=== PATIENT | male | born 1955 | race Caucasian/White ===

== ENCOUNTER 2018-02-15 08:03 | Day surgery (SDC) | payer OTHER ==
[2018-02-14 10:30] VITALS: BMI 33.9
--- NOTE | 2018-02-15 07:56 | HP ---
DATE OF ADMISSION: 02/15/2018 HISTORY OF PRESENT ILLNESS: This 62-year-old male referred to me for a colonoscopy for colon cancer screening. The patient does have a history of seeing blood in his stools over the last 2 months. He was really constipated for several months. However, in the last 2 months, he is having some diarrhe a. The stools are watery. Stools are of small volume. He has multiple stools as much as 10 to 12 a day. No history of abdominal pain or rectal bleeding. The patient comes in for a colonoscopy becau se of the above reasons. ALLERGIES: None. SOCIAL HISTORY: The patient is a former smoker. He was also drinking alcohol heavily. He quit smok ing and drinking alcohol, 3 years ago. PAST MEDICAL HISTORY: 1. Hypertension 2. Atrial fibrillation. PHYSICAL EXAMINATION: VITAL SIGNS: Pulse is 70, blood pressure 130/80. HEENT: Conjunctivae clear. CARDIOVASCULAR: First and second heart sounds normal. LUNGS: Clear to auscultation. ABDOMEN: Soft, no organomegaly. No tenderness. No masses. ADMITTING DIAGNOSIS: A 62-year-old male with history of change in bowel habits, diarrhea over the la st 2 months. The patient underwent colonoscopy.
[2018-02-15] MEDS ORDERED: Propofol 200 MG/20 ML VIAL ONE (13:27)
[2018-02-15] MEDS ORDERED: Lidocaine 1% PF 5 ML VIAL ONE (13:27)
[2018-02-15 13:35] LABS: Estimated GFR-MDRD - POC Greater than 90
[2018-02-15] MEDS ORDERED: Iopamidol 370 76% 100 ML VIAL ONE (14:58)
--- NOTE | 2018-02-15 17:27 | CT ---
CT ABDOMEN AND PELVIS WITH IV CONTRAST: 02/15/18 HISTORY: Postoperative post colonoscopy. Patient has not had normal bowel movement in four months. COMPARISON: None available. FINDINGS: There is mild bibasilar atelectasis. There is a small approximately 4 mm pulmonary nodule at the righ t lung base. The liver has a normal CT appearance and no hepatic lesions are seen. The spleen, pancreas, bilateral adrenal glands, left kidney, and urinary bladder demonstrate a normal CT appearance. There is a subcentimeter too small to characterize hypodense lesion in the mid portion right kidney. Vascular calcifications in the abdominal aorta and involving the iliac arteries. The prostate gland is enlarged measuring 5.8 cm in transverse dimensions with lobulated appearance an d mass effect in the posterior inferior aspect of the urinary bladder. There is prominent wall thickening involving the distal sigmoid colon and extending into the rectum. While there are multiple colonic diverticula seen in this region, findings are worrisome for a neopla stic process. Just to the left of the distal descending colon, there is a soft tissue mass in a peric olonic location measuring 3.6 cm x 2.9 cm which is contiguous with the area of thickening and could b e related to extra colonic extension of tumor. There are multiple prominent adjacent lymph nodes in a pericolonic location as well in the region of thickening with associated pericolonic inflammatory ch anges noted as well. There are enlarged para-aortic lymph nodes present with largest conglomeration o f lymph nodes seen on the left just below the level of the renal vessels measuring 5.1 cm x 2.5 cm. H owever, there are also additional prominent lymph nodes present, one of which is just to the left of the left common iliac artery which measures 3.4 cm x 1.8 cm. No free intraperitoneal gas is visualized. The appendix is normal in caliber. There are small fat containing bilateral inguinal hernias, greater on the left. Degenerative changes are seen in the spine. 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 There is a circumscribed fat density mass within the left abdominis oblique mu sculature anteriorly measuring 7.9 cm x 3.2 cm likely related to an intramuscular lipoma. IMPRESSION: 1. Short segment area of significant circumferential thickening involving the sigmoid colon with intraluminal narrowing and adjacent pericolonic inflammatory changes. While there are colonic divert icula seen in this region, the findings are worrisome for a neoplastic process. In addition, there is a mass just to the left of the distal sigmoid colon at the sigmoid rectal junction which may be rela marely to extra colonic extension of neoplastic process. 2. Pericolonic inflammatory changes adjacent to the area of bowel wall thickening. 3. Periaortic and pelvic lymphadenopathy. 4. No hepatic lesions are seen. 5. Enlargement of the prostate gland. 6. Above findings were discussed with Dr. Katelyn Lane on 02/15/18 at 1348 hours. POS: [facility]
--- NOTE | 2018-02-16 11:45 | OP ---
DATE OF SURGERY: 02/15/2018 OPERATIVE PROCEDURE: Flexible biopsy. PREOPERATIVE DIAGNOSIS: A 62-year-old male with changing bowel habits, undergoing colonosc opy for colon cancer screening. POSTOPERATIVE DIAGNOSES: Large polypoid lesion at 20 cm from with luminal narrowing. The scop e could not be advanced past the stricture, several attempts. PROCEDURE IN DETAIL: The patient was placed on his left lateral position and was given sedation by A nesthesia Department. A rectal exam was done and the scope was advanced into the rectum. No lesion felt on rectal exam. A Pentax video colonoscope was introduced into the rectum and advanced into the lower sigmoid colon area. At 20-25 cm anal margin, the patient was found to have circumferential jostin men narrowing. The lumen was very tight. There was also a polypoid lesion. The scope could not be advanced past the strictured area. Biopsy obtained from the area. DISCHARGE PLANNING: This is a 62-year-old male who came in for colonoscopy. On colonoscop y was found to have sigmoid stricture with what appears to be polypoid lesion. DISCHARGE RECOMMENDATIONS: 1. Obtain abdominal CAT scan. 2. Refer to Surgery for possible sigmoid resection.
== END 2018-02-15 14:00 | disposition home or self-care (01) ==
LOC: SDC 08:03
PROVIDERS: ATTEND Internal Medicine Gastroenterology
PROC: 0DBN8ZX Excision of Sigmoid Colon, Via Natural or Artificial Opening Endoscopic, Diagnostic (ICD-10-PCS; principal; 2018-02-15)
DX: C18.7 Malignant neoplasm of sigmoid colon (principal); K56.609 Unspecified intestinal obstruction, unspecified as to partial versus complete obstruction; I10 Essential (primary) hypertension; I48.91 Unspecified atrial fibrillation; Z87.891 Personal history of nicotine dependence; Z79.82 Long term (current) use of aspirin; Z79.899 Other long term (current) drug therapy
CPT/HCPCS: 74177; 82378; 82565; 88305; J2001; J2704

== ENCOUNTER 2018-02-28 08:50 | Inpatient (IN) | payer OTHER ==
[2018-02-28 09:26] VITALS: BMI 33.6
[2018-02-28] MEDS ORDERED: hydrALAZINE 20 MG/ML VIAL SLOW IVP PRN (09:28)
[2018-02-28] MEDS ORDERED: Ondansetron HCl/PF 4 MG/2 ML Vial SLOW IVP PRN (09:33)
[2018-02-28] MEDS ORDERED: Ondansetron ODT 4 MG TAB PO PRN (09:33)
[2018-02-28] MEDS ORDERED: GoLYTELY 4,000 ml Bottle PO SCH (09:45)
[2018-02-28 09:49] LABS: #Eosinphils 0.5 thou/uL (0.0-0.7); #Lymphocytes 1.3 thou/uL (1.20-3.40); #Monocytes 0.9 thou/uL (0.11-0.59); #Neutrophils 5.8 thou/uL (1.40-6.50); %Basophils 0.2 % (0.0-1.0); %Eosinophils 5.4 % (0.0-10.0); %Lymphocytes 14.9 % (21.0-51.0); %Monocytes 10.9 % (0.0-10.0); %Neutrophils 68.5 % (42.0-75.0); Hemoglobin 14.1 g/dL (14.0-18.0); Mean Corpuscular HGB CONC 32.7 g/dL (32.0-36.0); Mean Corpuscular Volume 88.8 fl (80.0-94.0); Mean Platelet Volume 6.9 fL (7.4-10.4); Platelet Count 389 thou/uL (130-400); RBC Distribution Width 12.9 % (11.5-14.5); Red Blood Cell (RBC) Count 4.87 mill/uL (4.70-6.10); White Blood Cell (WBC) Count 8.4 thou/uL (4.8-10.8)
[2018-02-28 10:11] LABS: ALT (SGPT) 16 U/L (8-55); AST (SGOT) 18 U/L (5-34); Albumin 4.2 g/dL (3.4-4.8); Alkaline Phosphatase 86 U/L (40-150); Anion Gap 14 mmol/L (10-20); BUN (Urea Nitrogen) 13 mg/dL (8.4-25.7); Bilirubin, Total 0.8 mg/dL (0.2-1.2); Calc. Creatinine Clearance 165 mL/min (70-130); Calcium 9.4 mg/dL (7.8-10.44); Carbon Dioxide 21 mmol/L (23-31); Chloride 106 mmol/L (98-107); Estimated GFR-MDRD Greater than 90; Globulin 3.6 g/dL (2.4-3.5); Glucose 102 mg/dL (80-115); Potassium 3.9 mmol/L (3.5-5.1); Protein, Total 7.8 g/dL (5.8-8.1); Sodium 137 mmol/L (136-145)
[2018-02-28] MEDS: Sodium Chloride 0.9% 1,000 ML IV SCH ×2 (10:56→21:40)
[2018-02-28] MEDS: Famotidine 20 MG TAB PO SCH ×2 (10:59→21:40)
--- NOTE | 2018-02-28 12:16 | RAD ---
CHEST TWO VIEWS: 02/28/2018 PROVIDED CLINICAL HISTORY: Preop. COMPARISON: None. FINDINGS: The cardiac silhouette appears enlarged. Mild elevation of the right hemidiaphragm. No focal consol idation, pleural fluid, or pneumothorax apparent. IMPRESSION: Cardiomegaly without evidence for an acute cardiopulmonary process. POS: [facility]
--- NOTE | 2018-02-28 14:21 | CON ---
DATE OF CONSULTATION: 02/28/2018 REASON FOR CONSULTATION: Preop clearance and history of atrial fibrillation. PRIMARY CARE PROVIDER: Dr. Nikolay Lee. HISTORY OF PRESENT ILLNESS: Mr. Bear is a 62-year-old gentleman with previous history of atrial fib rillation who recently presented with a colon obstruction. He is scheduled for resection. From a CV standpoint, he states he was diagnosed with atrial fibrillation secondary to alcohol use wh ile in [place]. He underwent multiple studies including coronary angiography in addition to a cardi oversion. He was placed on anticoagulation therapy for 10-12 months, then stopped. He has had no re current episodes of atrial fibrillation. He states he stopped all alcohol and tobacco last year. No syncope, presyncope, dizziness or lightheadedness is present. PAST MEDICAL HISTORY: Hypertension, atrial fibrillation. ALLERGIES: None. SOCIAL HISTORY: As above. HOME MEDICATIONS: Include aspirin, and amlodipine. REVIEW OF SYSTEMS: Ten point review of systems reviewed and as above, otherwise negative. PHYSICAL EXAMINATION: VITAL SIGNS: Blood pressure 150/82, pulse 44, temperature 97.8. GENERAL: Patient is a pleasant male who is in no acute distress. The patient appears his stated age. NEUROLOGIC: The patient is alert and oriented times 3 with no focal neurologic deficits. HEENT: Sclerae without icterus. Mouth has moist mucous membranes with normal pallor. NECK: No JVD. Carotid upstroke brisk. No bruits bilaterally. LUNGS: Clear to auscultation with unlabored respirations. BACK: No scoliosis or kyphosis. CARDIAC: Regular rate and rhythm with normal S1 and S2. No S3 or S4 noted. No significant rubs, mur murs, thrills, or gallops noted throughout the precordium. PMI is not displaced. There is no parast ernal heave. ABDOMEN: Soft, nontender, nondistended. No peritoneal signs present. No hepatosplenomegaly. No abn ormal striae. EXTREMITIES: 2+ femoral and 2+ dorsalis pedis pulses. No cyanosis, clubbing, or edema. SKIN: No gross abnormalities. EKG normal sinus rhythm with a narrow QRS complex, sinus bradycardia present. IMPRESSION: 1. Preop clearance. 2. History of atrial fibrillation. 3. Bradycardia. RECOMMENDATIONS: Mr. Bear has no current symptoms from his bradycardia. His heart rate initially w as a 44, but has been in the 50s to 60s. We will try and obtain records from [place]. If he has un dergone coronary angiography and per his history had no significant blockage would then proceed with surgery. I have asked the nurse to obtain a release of information.
--- NOTE | 2018-02-28 17:02 | HP ---
CHIEF COMPLAINT: Colon obstruction. HISTORY OF PRESENT ILLNESS: This is a 62-year-old male who presents with a history of chronic diarrh ea and abdominal bloating. He has lower abdominal cramping and pain that has become more increased l ately. He recently had a colonoscopy by Dr. Lane, which revealed near obstructing stricture in his left colon. Dr. Lane was not able to get the colonoscope past this area. He did do some bi opsies, those biopsies have revealed poorly differentiated adenocarcinoma. The patient had a CT scan which showed evidence of apple core lesion in this area with surrounding lymphadenopathy. There is no evidence of diffuse lymphadenopathy or metastatic disease. The patient's CEA level is normal. He notes bloating, multiple liquid stools a day, and lower abdominal cramping and pain. No fevers, no chills. No significant blood in stools. PAST MEDICAL HISTORY: Hypertension. PAST SURGICAL HISTORY: None. MEDICINES TAKEN DAILY: Amlodipine and aspirin. SOCIAL HISTORY: No smoking. He has a history of alcohol. No other drugs. REVIEW OF SYSTEMS: Ten system review of systems otherwise negative what was described above. ALLERGIES: No known drug allergies. PHYSICAL EXAMINATION: VITAL SIGNS: Blood pressure is 159/82, pulse 44, respirations 14. He is afebrile. HEENT: Sclerae are anicteric. Oropharynx clear. NECK: No lymphadenopathy. CHEST: Clear. HEART: Regular rate and rhythm. ABDOMEN: Soft, it is protuberant, it is mildly distended. Lower abdominal mild pain on exam. No gu arding or rebound. No abdominal or inguinal hernias. EXTREMITIES: No ischemia or edema to extremities. LABORATORY AND X-RAY FINDINGS: White blood cell count is 8, hemoglobin 14, platelet count is 389. S odium is 137, potassium 3.9, creatinine is 0.74. Liver function tests normal. CEA is 2.21. CT scan from prior admission reveals evidence of lymphadenopathy and left-sided colon mass. ASSESSMENT: 1. Colon mass with near obstruction. Biopsy shows invasive adenocarcinoma, clinical stage is T3 N1 M0. 2. History of hypertension and paroxysmal atrial fibrillation, on amlodipine, but no other medicines . PLAN: Admit to the hospital for slow prep. He is not going to be able to tolerate the prep in one s itting as an outpatient. We will have the business applications manager see him to be sure he does not need to be res tressed.
--- NOTE | 2018-03-01 08:32 | PRG ---
DATE OF SERVICE: 03/01/2018 SUBJECTIVE: Mr. Bear is doing very well. No current complaints. No chest pain, pressure, dizzines s, lightheadedness, syncope, presyncope. I did review his vital signs. It appears he has been in th e 40s all evening and this morning. Upon my arrival to his room, he was standing up and walking arou nd. I checked his pulse and his pulse was in the upper 60s-70s. PHYSICAL EXAMINATION: VITAL SIGNS: Blood pressure 140/70, 95, pulse 66, temperature afebrile. LUNGS: Clear to auscultation. HEART: Regular rate and rhythm. ABDOMEN: Soft, nontender, and nondistended. EXTREMITIES: No edema. IMPRESSION: 1. Bradycardia. 2. Preop clearance. RECOMMENDATIONS: His bradycardia seems to resolve with movement. Would recommend telemetry monitori ng overnight to assess his rhythm with exertion. I am awaiting his angiogram performed 3 years ago. If felt to be within normal limits as per his history, would be okay from my standpoint to clear for surgery.
[2018-03-01] MEDS ORDERED: Amlodipine 10 MG TAB PO SCH (09:00)
[2018-03-01] MEDS: Amlodipine 10 MG TAB PO SCH (09:12)
[2018-03-01] MEDS: metroNIDAZOLE 500 MG TAB PO SCH ×3 (09:15→19:49)
[2018-03-01] MEDS: Famotidine 20 MG TAB PO SCH ×2 (09:15→19:49)
--- NOTE | 2018-03-01 09:58 | PDOC.GSPN ---
Surgery Progress Note: Subj - Subjective Narrative: Tolerated prep yesterday without difficulty. Dr. Chaparro recommends monitored bed today due to bradycardia. Surgery Progress Note: Obj - Vital signs Vital signs: Vital Signs - Most Recent Temp Pulse Resp BP Pulse Ox 97.6 F 66 16 148/95 H 96 03/01/18 08:00 03/01/18 09:12 03/01/18 08:00 03/01/18 09:12 03/01/18 08:00 - Physical Exam General: no distress Cardiovascular: regular rate and rhythm Respiratory: clear to auscultation Abdomen: soft, non tender, nondistended Surgery Progress Note: Results - Labs Result Diagrams: 02/28/18 09:34 02/28/18 09:34 Surgery Progress Note: A/P - Problem (1) Cancer of sigmoid colon Current Visit: Yes Code(s): C18.7 - MALIGNANT NEOPLASM OF SIGMOID COLON Status: Acute Assessment and Plan: Partially obstructed. Finish prep today. Surgery tomorrow unless there are cardiac issues overnight.
[2018-03-01] MEDS: Sodium Chloride 0.9% 1,000 ML IV SCH ×2 (10:27→23:45)
[2018-03-01] MEDS: Neomycin 500 mg Tablet PO SCH ×3 (17:20→20:50)
[2018-03-02] MEDS ORDERED: cefOXitin 2 GM, Syringe 1 ML in Sterile Water 10 ML SLOW IVP SCH (00:15)
[2018-03-02] MEDS: metroNIDAZOLE 500 MG TAB PO SCH (09:00)
[2018-03-02] MEDS: Famotidine 20 MG TAB PO SCH ×2 (09:00→20:37)
[2018-03-02] MEDS ORDERED: Dexamethasone 4 mg/ml Vial ONE (10:08)
[2018-03-02] MEDS ORDERED: Midazolam HCl 2 mg/2 ml Vial ONE (10:08)
[2018-03-02] MEDS ORDERED: Fentanyl 100 MCG/2 ML VIAL ONE ×3 (10:08→13:42)
[2018-03-02] MEDS ORDERED: Bupivacaine/Epinephrine 0.25% 30 ML VIAL ONE (10:21)
[2018-03-02] MEDS ORDERED: Fentanyl 250 MCG/5 ML VIAL ONE (10:28)
[2018-03-02] MEDS ORDERED: Famotidine/PF 20 mg/2ml Vial ONE (10:28)
[2018-03-02] MEDS ORDERED: Ondansetron HCl/PF 4 MG/2 ML Vial ONE ×2 (10:28→16:54)
[2018-03-02] MEDS ORDERED: cefOXitin 2 GM VIAL ONE (12:38)
[2018-03-02] MEDS ORDERED: Promethazine HCl 25 MG/ML VIAL IM PRN ×3 (12:59→19:09)
[2018-03-02] MEDS ORDERED: Ondansetron HCl/PF 4 MG/2 ML Vial IVP PRN ×3 (12:59→19:09)
[2018-03-02] MEDS ORDERED: Promethazine HCl 25 MG/ML VIAL SLOW IVP PRN (12:59)
[2018-03-02] MEDS ORDERED: HYDROmorphone 2 MG/ML VIAL SLOW IVP PRN (12:59)
[2018-03-02] MEDS ORDERED: Meperidine HCl/PF 25 MG/ML VIAL SLOW IVP PRN (12:59)
[2018-03-02] MEDS ORDERED: Fentanyl 100 MCG/2 ML VIAL SLOW IVP PRN (14:21)
[2018-03-02] MEDS ORDERED: hydrALAZINE 20 MG/ML VIAL SLOW IVP PRN (14:21)
[2018-03-02] MEDS ORDERED: CEFOXITIN IVPB SCH ×2 (14:30→22:00)
[2018-03-02] MEDS: D5 1/2 NS w/20 mEq KCL 1,000 ML IV SCH (15:56)
--- NOTE | 2018-03-02 16:04 | OP ---
DATE OF PROCEDURE: 03/02/2018 PREOPERATIVE DIAGNOSIS: Left colon adenocarcinoma, locally invasive. POSTOPERATIVE DIAGNOSES: Left colon adenocarcinoma, locally invasive. PROCEDURES: 1. Left colectomy with low pelvic anastomosis diverted with loop ileostomy. 2. Splenic flexure mobilization. SURGEON: Luis Enrique Lee M.D. ANESTHESIA: General. ESTIMATED BLOOD LOSS: 100 mL. COMPLICATIONS: None. FINDINGS: Locally invasive cancer in low sigmoid colon. INDICATIONS: The patient is a 62-year-old male who presented with chronic diarrhea and lower abdomin al cramping and pain. Colonoscopy by Dr. Lane revealed near obstructing mass and stricture. Bi opsies revealed invasive adenocarcinoma. CT scan showed evidence of local lymphadenopathy, but no me tastatic disease. Risks, benefits, and alternatives were discussed. He is admitted for cardiac norma kelvin and underwent colon prep, both mechanical and antibiotic. He had Hibiclens shower last night. He gave consent for surgery. He understood risks, benefits, alternatives to surgery. TECHNIQUE: The patient was taken to the operating room and placed supine on the table. After genera l anesthetic was obtained, a Gaines was placed. The patient was placed in lithotomy position. His ab domen were shaved, prepped, and draped in a sterile fashion. Midline incision is made from above umb ilicus all the way down to pubis. Cautery dissected down into the abdominal cavity. Bookwalter retr actor was placed. Left colon mobilized along the white line of Toldt. Left ureter was found and exc luded from the dissection. The colon was flipped over and the mesentery incised on the medial side. A medial to lateral dissection is performed. Left ureter again is found. Inferior mesenteric arter y was taken using Lianet clamp and silk tie. The mesentery was then taken down into the pelvis using LigaSure. In the upper rectum, the contour stapler was fired across the colon after the lateral and posterior attachments were taken using the LigaSure. The left colon was then mobilized up and the sp lenic flexure mobilized by the transverse colon and the greater omentum. All splenic flex ure attachments were taken down. This allowed for the upper left colon to pull down into the pelvis under no tension. A 31 EEA stapler was brought into the sterile field. A location in the left upper colon was found for the anastomosis. The anvil was passed through a distal colotomy with its pin br ought out on the antimesenteric surface of the colon proximal in the upper left colon. Just distal t o this, a reload of the contour stapler was fired across the colon. The anvil segment was able to be brought down into the pelvis under no tension. The specimen is opened on the back table to reveal w hat looked like satellite nodular tissue from the stricture and mass all the way to the end staple li ne. A stitch was placed on this in staple line. So the rectum was fully dissected all the way down and an additional 1-2 inches of the rectum was taken with silk placed on the new margin. The base fo r the EEA is brought up to the anus. Its sharp pin brought on the antimesenteric surface below, conn ected to the anvil from above and the stapler was tightened down to the green zone and fired. There were 2 good rings of tissue. The distal most ring is sent for final distal margin. Because of the l ocally inflammatory nature of the disease process as well as the low anastomosis, decision was made t o divert with ostomy. Ellipse of skin taken out in the right lower quadrant. Cruciate incision is m amanda in the fascia and a loop of the terminal ileum is brought up through here and held in place using a Maddie. All instrument counts, needle counts, and lap counts were correct. The abdomen is irrig ated. There is no ongoing bleeding. Again, the left ureter was and found to be without injury. Sep rafilm was placed around the ostomy site and posterior to the midline closure. The fascia was closed using running PDS from the top and the bottom and tied in the middle. Subcutaneous tissues are irri gated using 3 liters of Pulsavac tow operator and the skin is closed using 3-0 Vicryl, 4-0 Monocryl, and Dermabond. The ostomy was then matured in the usual fashion using 3-0 Vicryl and ostomy devices ethan daphne. The patient is en route to recovery in stable condition. All instrument counts, needle counts, lap counts are correct.
[2018-03-02] MEDS: Fentanyl 100 MCG/2 ML VIAL SLOW IVP PRN ×2 (16:49→18:39)
[2018-03-02] MEDS: Amlodipine 10 MG TAB PO SCH (16:51)
[2018-03-02] MEDS ORDERED: Glycopyrrolate 0.2 MG/ML 5 ML SYRINGE ONE (16:54)
[2018-03-02] MEDS ORDERED: PROPOFOL 200 MG/20 ML VIAL ONE (16:54)
[2018-03-02] MEDS ORDERED: Lidocaine 1% PF 5 ML VIAL ONE (16:54)
[2018-03-02] MEDS ORDERED: Dexamethasone 20 MG/5 ML VIAL ONE (16:54)
[2018-03-02] MEDS ORDERED: Ketorolac Tromethamine 30 MG/ML VIAL ONE (16:54)
[2018-03-02] MEDS ORDERED: ePHEDrine/0.9% NaCl/PF SYRINGE 50 mg/10 ml ONE (16:54)
[2018-03-02] MEDS: Acetaminophen 1,000 MG in Premix Bag 1 BAG IVPB SCH (17:46)
[2018-03-02] MEDS ORDERED: Zolpidem Tartrate 5 MG TAB PO PRN (19:09)
[2018-03-02] MEDS ORDERED: Naloxone HCl 0.4 mg/ml Vial IV PRN (19:09)
[2018-03-02] MEDS ORDERED: Fentanyl 5000 MCG/250 ML CADD IV PRN (19:09)
[2018-03-02] MEDS ORDERED: diphenhydrAMINE 50 MG/ML VIAL IM/IV PRN (19:09)
[2018-03-02] MEDS ORDERED: diphenhydrAMINE 25 MG CAP PO PRN (19:09)
[2018-03-02] MEDS ORDERED: fentaNYL Citrate/PF 2,000 MCG in Sodium Chloride 0.9% 60 ML IV PRN (20:30)
[2018-03-02] MEDS: Enoxaparin Sodium 40 MG/0.4 ML SYRINGE SC SCH (20:37)
[2018-03-02] MEDS: Famotidine 40 MG/4 ML VIAL SLOW IVP SCH (20:38)
[2018-03-03] MEDS: Acetaminophen 1,000 MG in Premix Bag 1 BAG IVPB SCH ×3 (01:15→12:44)
[2018-03-03] MEDS: D5 1/2 NS w/20 mEq KCL 1,000 ML IV SCH ×2 (01:15→08:33)
[2018-03-03 04:36] LABS: #Lymphocytes 0.7 thou/uL (1.20-3.40); #Monocytes 1.1 thou/uL (0.11-0.59); %Eosinophils 0.1 % (0.0-10.0); %Lymphocytes 4.3 % (21.0-51.0); %Monocytes 6.5 % (0.0-10.0); %Neutrophils 89.1 % (42.0-75.0); Hemoglobin 11.6 g/dL (14.0-18.0); Mean Corpuscular HGB CONC 32.3 g/dL (32.0-36.0); Mean Corpuscular Hemoglobin 28.3 pg (27.0-31.0); Mean Corpuscular Volume 87.6 fl (80.0-94.0); Mean Platelet Volume 6.9 fL (7.4-10.4); Platelet Count 377 thou/uL (130-400); RBC Distribution Width 12.9 % (11.5-14.5); Red Blood Cell (RBC) Count 4.11 mill/uL (4.70-6.10); White Blood Cell (WBC) Count 16.9 thou/uL (4.8-10.8)
[2018-03-03 04:46] LABS: Anion Gap 10 mmol/L (10-20); BUN (Urea Nitrogen) 14 mg/dL (8.4-25.7); Calc. Creatinine Clearance 127 mL/min (70-130); Carbon Dioxide 23 mmol/L (23-31); Chloride 106 mmol/L (98-107); Estimated GFR-MDRD 79; Glucose 191 mg/dL (80-115); Potassium 4.4 mmol/L (3.5-5.1); Sodium 135 mmol/L (136-145)
[2018-03-03] MEDS: Famotidine 20 MG TAB PO SCH ×2 (08:28→21:26)
[2018-03-03] MEDS: Amlodipine 10 MG TAB PO SCH (08:28)
[2018-03-03] MEDS: Famotidine 40 MG/4 ML VIAL SLOW IVP SCH ×2 (08:33→21:27)
[2018-03-03] MEDS ORDERED: Dextrose 50% Abboject 50 ML SYRINGE SLOW IVP PRN (10:05)
[2018-03-03] MEDS ORDERED: HumaLOG 300 UNITS/3 ML VIAL SC PRN (10:05)
[2018-03-03] MEDS ORDERED: Dextrose 5% in Water 1,000 ML IV PRN (10:05)
--- NOTE | 2018-03-03 10:10 | PDOC.GSPN ---
Surgery Progress Note: Subj - Subjective Narrative: Pain controlled with INDUSTRIAL RELATIONS COUNSELOR. Not out of bed yet. Surgery Progress Note: Obj - Vital signs Vital signs: Vital Signs - Most Recent Temp Pulse Resp BP Pulse Ox 97.7 F 62 19 112/69 92 L 03/03/18 08:00 03/03/18 08:28 03/03/18 08:00 03/03/18 08:28 03/03/18 08:00 - Physical Exam General: no distress Cardiovascular: regular rate and rhythm Respiratory: normal expansion Abdomen: soft, nondistended, appropriately tender Wound: healing well, ostomy/colostomy Surgery Progress Note: Results - Labs Result Diagrams: 03/03/18 03:16 03/03/18 03:16 Lab results: Laboratory Results - last 24 hr 03/03/18 03/03/18 03:16 03:16 WBC 16.9 H RBC 4.11 L Hgb 11.6 L Hct 36.0 L MCV 87.6 MCH 28.3 MCHC 32.3 RDW 12.9 Plt Count 377 MPV 6.9 L Neutrophils % 89.1 H Lymphocytes % 4.3 L Monocytes % 6.5 Eosinophils % 0.1 Basophils % 0.0 Neutrophils # 15.0 H Lymphocytes # 0.7 L Monocytes # 1.1 H Eosinophils # 0.0 Basophils # 0.0 Sodium 135 L Potassium 4.4 Chloride 106 Carbon Dioxide 23 Anion Gap 10 BUN 14 Creatinine 0.96 Estimated GFR (MDRD) 79 Glucose 191 H Calcium 9.0 Surgery Progress Note: A/P - Problem (1) Cancer of sigmoid colon Current Visit: Yes Code(s): C18.7 - MALIGNANT NEOPLASM OF SIGMOID COLON Status: Acute Assessment and Plan: POD 1 left colectomy and ileostomy. Bolus a liter NS. His urine is concentrated looking. Encouraged ambulation. Four times a day is the minimum. Full liquids for dinner if no nausea
[2018-03-03] MEDS: Sodium Chloride 0.9% 1,000 ML IV SCH ×2 (10:15→18:09)
[2018-03-03] MEDS ORDERED: Sodium Chloride 0.9% 1,000 ML IV SCH (10:15)
--- NOTE | 2018-03-03 13:18 | PDOC.CTH ---
Cardiology Progress Note - Subjective Patient with no cardiac complaints. Denies any CP, SOB, AMOR or palpitations. - Objective Vital Signs Temp Pulse Resp BP BP Pulse Ox 03/03/18 12:40 97.8 F 76 20 131/77 93 L 03/03/18 08:28 62 112/69 03/03/18 08:26 97.7 F 62 19 92 L 03/03/18 08:00 97.7 F 62 19 112/69 92 L 03/03/18 05:35 97.9 F 62 19 127/78 91 L Admit Weight 248 lb Weight 248 lb 03/02/18 03/03/18 03/04/18 06:59 06:59 06:59 Intake Total 900 2110 Output Total 600 900 Balance 300 1210 - Physical Examination General/Neuro: alert & oriented x3, NAD Neck: carotid US brisk, no JVD present Lungs: CTA Heart: PMI normal, RRR Abdomen: NT/ND Extremities: other: (no edema) - Telemetry Telemetry Rhythm: off tele - Labs Result Diagrams: 03/03/18 03:16 03/03/18 03:16 - Assessment/Plan 1. Colon cancer s/p left colectomy and ileostomy - managed by GS 2. Paroxsymal AFib - maintaining NSR. [id number] is 2 given history of HTN and CHF. Will address NOAC need prior to d/c. 3. HTN - well-controlled 4. Bradycardia - improved. Currently NSR 60s. No bblockers. 5. 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 EF 30-35% at that time. No repeat study recently. Avoid volume overload with IVFs. May need repeat ECHO (? outpatient).
[2018-03-03] MEDS: Enoxaparin Sodium 40 MG/0.4 ML SYRINGE SC SCH (21:26)
[2018-03-04] MEDS: Sodium Chloride 0.9% 1,000 ML IV SCH ×3 (03:44→19:15)
[2018-03-04 06:05] LABS: #Basophils 0.1 thou/uL (0.0-0.2); #Lymphocytes 1.1 thou/uL (1.20-3.40); #Monocytes 1.3 thou/uL (0.11-0.59); #Neutrophils 12.5 thou/uL (1.40-6.50); %Basophils 0.4 % (0.0-1.0); %Eosinophils 0.2 % (0.0-10.0); %Lymphocytes 7.6 % (21.0-51.0); %Monocytes 8.5 % (0.0-10.0); %Neutrophils 83.3 % (42.0-75.0); Hemoglobin 7.6 g/dL (14.0-18.0); Mean Corpuscular HGB CONC 32.2 g/dL (32.0-36.0); Mean Corpuscular Hemoglobin 28.4 pg (27.0-31.0); Mean Corpuscular Volume 88.3 fl (80.0-94.0); Platelet Count 333 thou/uL (130-400); RBC Distribution Width 12.9 % (11.5-14.5); Red Blood Cell (RBC) Count 2.66 mill/uL (4.70-6.10)
[2018-03-04 06:08] LABS: Anion Gap 9 mmol/L (10-20); BUN (Urea Nitrogen) 20 mg/dL (8.4-25.7); Calc. Creatinine Clearance 145 mL/min (70-130); Carbon Dioxide 23 mmol/L (23-31); Chloride 107 mmol/L (98-107); Estimated GFR-MDRD Greater than 90; Glucose 117 mg/dL (80-115); Potassium 3.9 mmol/L (3.5-5.1); Sodium 135 mmol/L (136-145)
[2018-03-04] MEDS: Famotidine 40 MG/4 ML VIAL SLOW IVP SCH (09:18)
[2018-03-04] MEDS: Amlodipine 10 MG TAB PO SCH (09:24)
[2018-03-04] MEDS: Famotidine 20 MG TAB PO SCH ×2 (09:24→21:32)
[2018-03-04] MEDS ORDERED: HYDROcodone/Acetaminophen 10/325 mg Tablet PO PRN (10:14)
[2018-03-04] MEDS ORDERED: Fentanyl 100 MCG/2 ML VIAL SLOW IVP PRN (10:15)
[2018-03-04] MEDS ORDERED: Ibuprofen 600 MG TAB PO PRN (18:38)
[2018-03-04] MEDS ORDERED: Acetaminophen 500 MG TAB PO PRN (18:38)
[2018-03-04] MEDS ORDERED: traMADol HCl 50 MG TAB PO PRN ×2 (18:38)
--- NOTE | 2018-03-04 19:03 | PRG ---
DATE OF SERVICE: 03/04/2018 SUBJECTIVE: Sunny Bear is doing well today. He is tolerating his liquids. His ileostomy is working well. OBJECTIVE: VITAL SIGNS: 97.9, 73, 16, 127/86. LUNGS: Clear to auscultation. CARDIAC: Regular rate and rhythm without murmur or gallop. ABDOMEN: Soft, ecchymosis about his wound expected postoperatively. He is tolerating his full liqui d diet. Ileostomy has good output. This morning his white count is 15, hemoglobin 7.6. Basic metabolic profile is normal. Overall, he is doing well. Overall, he is doing well. We will advance his diet to full. He continued on full liquids. We will saline lock him. AIRCRAFT ENGINE DISMANTLER has been discontinued.
[2018-03-04] MEDS: Enoxaparin Sodium 40 MG/0.4 ML SYRINGE SC SCH (21:31)
[2018-03-04] MEDS: HYDROcodone/Acetaminophen 10/325 mg Tablet PO PRN (21:32)
[2018-03-05] MEDS ORDERED: Fentanyl 100 MCG/2 ML VIAL SLOW IVP PRN (02:45)
[2018-03-05] MEDS: HYDROcodone/Acetaminophen 10/325 mg Tablet PO PRN ×3 (04:50→20:29)
--- NOTE | 2018-03-05 08:44 | EKG ---
Test Reason : PREOP Blood Pressure : / mmHG Vent. Rate : 044 BPM Atrial Rate : 044 BPM P-R Int : 192 ms QRS Dur : 126 ms QT Int : 486 ms P-R-T Axes : 024 -24 033 degrees QTc Int : 415 ms Marked sinus bradycardia Non-specific intra-ventricular conduction block Inferior infarct , age undetermined Abnormal ECG No previous ECGs available Confirmed by ROSALBA LYON MD ([id number]) on 03/05/2018 8:43:48 AM Referred By: GABBY Confirmed By:ROSALBA LYON MD
--- NOTE | 2018-03-05 08:45 | EKG ---
Test Reason : Blood Pressure : / mmHG Vent. Rate : 044 BPM Atrial Rate : 044 BPM P-R Int : 118 ms QRS Dur : 120 ms QT Int : 492 ms P-R-T Axes : -13 -27 045 degrees QTc Int : 420 ms Marked sinus bradycardia Inferior infarct (cited on or before 28-FEB-2018) Abnormal ECG When compared with ECG of 28-FEB-2018 10:42, (Unconfirmed) No significant change was found Confirmed by ROSALBA LYON MD ([id number]) on 03/05/2018 8:45:09 AM Referred By: GABBY Confirmed By:ROSALBA LYON MD
--- NOTE | 2018-03-05 08:45 | EKG ---
Test Reason : Blood Pressure : / mmHG Vent. Rate : 038 BPM Atrial Rate : 038 BPM P-R Int : 192 ms QRS Dur : 112 ms QT Int : 470 ms P-R-T Axes : 045 -14 080 degrees QTc Int : 373 ms Marked sinus bradycardia with sinus arrhythmia Nonspecific T wave abnormality Abnormal ECG When compared with ECG of 28-FEB-2018 17:00, (Unconfirmed) Criteria for Inferior infarct are no longer Present Nonspecific T wave abnormality, worse in Lateral leads Confirmed by ROSALBA LYON MD ([id number]) on 03/05/2018 8:45:26 AM Referred By: CAMRON Confirmed By:ROSALBA LYON MD
[2018-03-05] MEDS: Amlodipine 10 MG TAB PO SCH (09:26)
[2018-03-05] MEDS: Famotidine 20 MG TAB PO SCH ×2 (09:26→20:29)
--- NOTE | 2018-03-05 18:22 | PRG ---
DATE OF SERVICE: 03/05/2018 SUBJECTIVE: Mr. Bear is doing well. He is tolerating his full liquids. Regular diet has been orde red, but he feels more comfortable in the full liquids at this time. I have told him he can advance his diet as tolerated. He can stay on the full liquids as long as he is comfortable and advance when he is ready. OBJECTIVE: VITAL SIGNS: 99.6 degrees, 73, 136/83. LUNGS: Clear to auscultation. CARDIAC: Regular rate and rhythm without murmur or gallop. ABDOMEN: Soft, nontender. Ileostomy healthy. Nondistended abdomen. Good bowel sounds. The patient is doing well postoperatively. He can be discharged home midmorning. He is hoping to le ave in midmorning. I will communicate with Dr. Lee. The patient is taking care of his own ileos krystina at this point and should be ready to go home in the morning.
[2018-03-05] MEDS: Enoxaparin Sodium 40 MG/0.4 ML SYRINGE SC SCH (20:28)
[2018-03-06] MEDS: HYDROcodone/Acetaminophen 10/325 mg Tablet PO PRN ×3 (00:34→15:49)
[2018-03-06] MEDS: Amlodipine 10 MG TAB PO SCH (09:10)
[2018-03-06] MEDS: Famotidine 20 MG TAB PO SCH (09:11)
--- NOTE | 2018-03-06 10:49 | DIS ---
ADMISSION DIAGNOSES: Colon obstruction, malignant, history of hypertension. DISCHARGE DIAGNOSES: Colon obstruction, malignant, history of hypertension. PROCEDURES: Left colectomy with low pelvic anastomosis and splenic flexure mobilization by Dr. Genevieve puentes without complication. CONDITION AT DISCHARGE: Stable. STAFF: Dr. Luis Enrique Lee. HOSPITAL COURSE: The patient was admitted with colon obstruction. He underwent Cardiology consultat ion and clearance for surgery. He had a slow prep in the hospital for his procedure. He underwent l eft colectomy for locally invasive malignancy with diverting ileostomy. His postop course was uneven tful. On the day of discharge, he is tolerating full liquids and soft mechanical diet without diffic ulty. He is being discharged home. Ileostomy care and instructions has been performed. He is going to follow up with me in 2 weeks. Final pathology is pending at the time of this dictation. He has shown interest in being seen at [facility] for opinion there. We will certainly make that referral as soon as I have his pathology results. He will call me with any issues with wound drainage, fever, chills, nausea, vomiting. He has prescription for Lomotil in case his output becomes more liquidy.
[2018-03-06 15:44] VITALS: BP 178/78; TEMP 97.9
== END 2018-03-06 16:00 | disposition home or self-care (01) | DRG 331 ==
LOC: SURG A 08:50 → 2NO 03-01 10:12 → SURG A 03-02 17:30
PROVIDERS: ADMIT Surgery; ATTEND Surgery
PROC: 0D1B0Z4 Bypass Ileum to Cutaneous, Open Approach (ICD-10-PCS; principal; 2018-03-02)
PROC: 0DTN0ZZ Resection of Sigmoid Colon, Open Approach (ICD-10-PCS; 2018-03-02)
DX: C18.7 Malignant neoplasm of sigmoid colon (principal); I48.0 Paroxysmal atrial fibrillation; I10 Essential (primary) hypertension; R00.1 Bradycardia, unspecified; Z79.82 Long term (current) use of aspirin; Z79.899 Other long term (current) drug therapy
CPT/HCPCS: 36415; 36416; 71046; 80048; 80053; 82378; 85025; 88305; 88309; 93005; 93010; A4216; J0131; J0694; J1100; J1650; J1885; J2001; J2250; J2405; J2704; J3010; J7050; S0028

== ENCOUNTER 2018-04-04 08:22 | Outpatient (CLI) | payer OTHER ==
--- NOTE | 2018-04-04 11:27 | RAD ---
SINGLE CONTRAST ENEMA: CLINICAL HISTORY: Prior partial colonic resection with colocolonic/colorectal anastomosis and diverting ileostomy. FINDINGS: Low pressure retrograde instillation of Gastrografin was performed which reveals anastomotic site at the distal aspect of the sigmoid colon and proximal aspect of the rectum. There is redundancy of muc lucille, typical for anastomosis; however, in addition, there is contrast extension beyond the expected c onfines of typical appearance for colonic mucosa tracking in a linear pattern which progresses during the course of the exam. This does not demonstrate free spill, although does progressive track in a posterior course parallel to the [place] lumen. Therefore, a small breach of the anastomotic mucosa i s not excluded on the basis of this exam. There are scattered colonic diverticula. The colon remain s contracted throughout a majority of its course. Contrast does traverse to the level of the distal small bowel. IMPRESSION: 1. Extraluminal linear progressive contrast opacification at the site of anastomosis, posteriorly fo r which contrast leakage related to small breach of the anastomotic site is not excluded, as this fin ding does progress under real-time visualization during the course of the exam. 2. Colonic diverticulosis. Telephone call of findings placed to patient's physician, Dr. Nikolay Lee, at the time of exam comp letion 1016 hours, 04/04/18. CODE CR POS: JONN
[2018-04-04] MEDS ORDERED: MD-Gastroview 120 ML BOT ONE (14:01)
== END 2018-04-04 08:23 | disposition home or self-care (01) ==
LOC: RAD 08:22
PROVIDERS: ATTEND Surgery
DX: Z43.3 Encounter for attention to colostomy (principal); K57.30 Diverticulosis of large intestine without perforation or abscess without bleeding
CPT/HCPCS: 74270

== ENCOUNTER 2018-04-04 08:38 | Outpatient (CLI) | payer OTHER ==
[2018-04-04 09:46] LABS: #Eosinphils 0.3 thou/uL (0.0-0.7); #Lymphocytes 1.1 thou/uL (1.20-3.40); #Neutrophils 5.7 thou/uL (1.40-6.50); %Basophils 0.6 % (0.0-1.0); %Eosinophils 3.3 % (0.0-10.0); %Lymphocytes 13.7 % (21.0-51.0); %Neutrophils 70.5 % (42.0-75.0); Hemoglobin 12.5 g/dL (14.0-18.0); Mean Corpuscular HGB CONC 32.9 g/dL (32.0-36.0); Mean Corpuscular Hemoglobin 27.6 pg (27.0-31.0); Mean Corpuscular Volume 83.8 fl (80.0-94.0); Mean Platelet Volume 7.2 fL (7.4-10.4); Platelet Count 523 thou/uL (130-400); RBC Distribution Width 13.9 % (11.5-14.5); Red Blood Cell (RBC) Count 4.54 mill/uL (4.70-6.10); White Blood Cell (WBC) Count 8.1 thou/uL (4.8-10.8)
[2018-04-04 10:02] LABS: Anion Gap 16 mmol/L (10-20); BUN (Urea Nitrogen) 27 mg/dL (8.4-25.7); Calc. Creatinine Clearance 0 mL/min (70-130); Carbon Dioxide 20 mmol/L (23-31); Chloride 103 mmol/L (98-107); Estimated GFR-MDRD 54; Glucose 105 mg/dL (80-115); Potassium 4.8 mmol/L (3.5-5.1); Sodium 134 mmol/L (136-145)
== END 2018-04-04 08:39 | disposition home or self-care (01) ==
LOC: LABBT 08:38
PROVIDERS: ATTEND Surgery
DX: Z01.812 Encounter for preprocedural laboratory examination (principal); C18.9 Malignant neoplasm of colon, unspecified; Z43.2 Encounter for attention to ileostomy
CPT/HCPCS: 80048; 85025

== ENCOUNTER 2018-04-04 13:00 | Inpatient (IN) | payer OTHER ==
[2018-04-04 08:55] VITALS: BMI 28.5
[2018-04-13] MEDS ORDERED: cefOXitin 2 GM VIAL ONE (06:05)
[2018-04-13] MEDS ORDERED: Sodium Chloride 0.9% 100 ML ONE (06:06)
[2018-04-13] MEDS ORDERED: HYDROmorphone 0.5 MG/0.5 ML SYRINGE ONE ×2 (06:09→07:03)
[2018-04-13] MEDS ORDERED: Fentanyl 100 MCG/2 ML VIAL ONE ×4 (06:09→09:59)
[2018-04-13] MEDS ORDERED: Bupivacaine/Epinephrine 0.25% 30 ML VIAL ONE (06:45)
[2018-04-13] MEDS ORDERED: Promethazine HCl 25 MG/ML VIAL SLOW IVP PRN (09:45)
[2018-04-13] MEDS ORDERED: Ondansetron HCl/PF 4 MG/2 ML Vial IVP PRN ×2 (09:45→11:46)
[2018-04-13] MEDS ORDERED: Promethazine HCl 25 MG/ML VIAL IM PRN ×2 (09:45→11:46)
--- NOTE | 2018-04-13 09:50 | OP ---
DATE OF PROCEDURE: 04/13/2018 PREOPERATIVE DIAGNOSIS: History of T4 N3 left colon cancer diverted after anastomosis with diverting ileostomy. POSTOPERATIVE DIAGNOSIS: History of T4 N3 left colon cancer diverted after anastomosis with divertin g ileostomy. PROCEDURE: Ileostomy reversal, small bowel resection anastomosis. SURGEON: Luis Enrique Lee M.D. ANESTHESIA: General. ESTIMATED BLOOD LOSS: Minimal. COMPLICATIONS: None. SPECIMEN: Ileostomy segment. TECHNIQUE: The patient was taken to the operating room and placed supine on the table. After genera l anesthetic is obtained, the ostomy site is sutured shut with a pursestring of silk. The abdomen wa s shaved, prepped, and draped in a sterile fashion. The ileostomy site in the right lower quadrant i s ellipsed out. Cautery was performed against the small intestine all the way to its fascial defects . All adhesions were taken down. The small intestine loop was able to be brought up in the wound un yesenia no tension. There were no intra-abdominal adhesions. ZACH-75 stapler was fired across the ileost keira segment just proximal and distal to its skin segment. The resultant mesentery is taken using Albert ly clamps and silk ties. The small bowel was brought together in an antimesenteric fashion. Enterot omies made on the antimesenteric surface of each. The [id number] anastomosis performed using ZACH-7 5 stapler. The common enterotomy was closed using T60. The crotch, the corners and the middle of th e staple line were all oversewn using silk sutures. The mesenteric defect closed using silk suture. The anastomosis was placed back into the abdominal cavity. All instrument counts, needle counts, la p counts were correct. The anterior and posterior fascia was closed using PDS. Surgeon and assistan t all changed gloves. Subcutaneous tissues are irrigated and closed using pursestring of Prolene and a [place] drain, sterile dressings. The patient was taken to recovery in stable condition. All ins trument counts, needle counts, lap counts were correct.
[2018-04-13] MEDS ORDERED: hydrALAZINE 20 MG/ML VIAL SLOW IVP PRN (11:46)
[2018-04-13] MEDS ORDERED: Amlodipine 10 MG TAB PO SCH ×2 (11:46→12:45)
[2018-04-13] MEDS ORDERED: Fentanyl 100 MCG/2 ML VIAL SLOW IVP PRN (11:46)
[2018-04-13] MEDS: Fentanyl 100 MCG/2 ML VIAL SLOW IVP PRN ×5 (12:23→23:44)
[2018-04-13] MEDS: Acetaminophen 1,000 MG in Premix Bag 1 BAG IVPB SCH ×3 (12:24→23:57)
[2018-04-13] MEDS: Famotidine 20 MG TAB PO SCH ×2 (12:35→20:54)
[2018-04-13] MEDS: Sodium Chloride 0.9% 1,000 ML IV SCH (12:36)
[2018-04-13] MEDS: cefOXitin 2 GM in Sodium Chloride 0.9% 100 ML IVPB SCH ×2 (14:39→21:05)
[2018-04-13] MEDS ORDERED: Ketorolac Tromethamine 30 MG/ML VIAL ONE (15:21)
[2018-04-13] MEDS ORDERED: PHENYLEPHRINE-NS 100 MCG/ML 10 ML SYRINGE ONE (15:21)
[2018-04-13] MEDS ORDERED: Metoclopramide HCl 10 MG/2 ML VIAL ONE (15:21)
[2018-04-13] MEDS ORDERED: PROPOFOL 200 MG/20 ML VIAL ONE (15:21)
[2018-04-13] MEDS ORDERED: Lidocaine 1% PF 5 ML VIAL ONE (15:21)
[2018-04-13] MEDS ORDERED: Succinylcholine Chloride 20 MG/ML 10 ml SYRINGE FS ONE (15:21)
[2018-04-13] MEDS ORDERED: Dexamethasone 20 MG/5 ML VIAL ONE (15:21)
[2018-04-13] MEDS ORDERED: Glycopyrrolate 0.2 MG/ML 5 ML SYRINGE ONE (15:21)
[2018-04-13] MEDS ORDERED: Ondansetron HCl/PF 4 MG/2 ML Vial ONE (15:21)
[2018-04-13] MEDS: Enoxaparin Sodium 40 MG/0.4 ML SYRINGE SC SCH (21:02)
[2018-04-13] MEDS: Famotidine/PF 20 mg/2ml Vial SLOW IVP SCH (21:13)
[2018-04-14] MEDS: Sodium Chloride 0.9% 1,000 ML IV SCH ×2 (03:55→04:47)
[2018-04-14 04:02] LABS: #Neutrophils 8.6 thou/uL (1.40-6.50); %Basophils 0.1 % (0.0-1.0); %Eosinophils 0.4 % (0.0-10.0); %Lymphocytes 9.4 % (21.0-51.0); %Monocytes 9.5 % (0.0-10.0); %Neutrophils 80.7 % (42.0-75.0); Hemoglobin 10.1 g/dL (14.0-18.0); Mean Corpuscular HGB CONC 32.6 g/dL (32.0-36.0); Mean Corpuscular Hemoglobin 27.4 pg (27.0-31.0); Mean Corpuscular Volume 83.9 fl (80.0-94.0); Mean Platelet Volume 7.2 fL (7.4-10.4); Platelet Count 337 thou/uL (130-400); RBC Distribution Width 13.8 % (11.5-14.5); Red Blood Cell (RBC) Count 3.69 mill/uL (4.70-6.10); White Blood Cell (WBC) Count 10.6 thou/uL (4.8-10.8)
[2018-04-14 04:16] LABS: Anion Gap 8 mmol/L (10-20); BUN (Urea Nitrogen) 13 mg/dL (8.4-25.7); Calc. Creatinine Clearance 129 mL/min (70-130); Carbon Dioxide 23 mmol/L (23-31); Chloride 109 mmol/L (98-107); Estimated GFR-MDRD Greater than 90; Glucose 106 mg/dL (80-115); Potassium 4.8 mmol/L (3.5-5.1); Sodium 135 mmol/L (136-145)
[2018-04-14] MEDS: Acetaminophen 1,000 MG in Premix Bag 1 BAG IVPB SCH (06:25)
[2018-04-14] MEDS: Fentanyl 100 MCG/2 ML VIAL SLOW IVP PRN ×4 (07:45→22:05)
[2018-04-14] MEDS: Amlodipine 10 MG TAB PO SCH (08:38)
[2018-04-14] MEDS: Famotidine 20 MG TAB PO SCH ×2 (08:38→22:07)
[2018-04-14] MEDS: Famotidine/PF 20 mg/2ml Vial SLOW IVP SCH ×2 (08:42→23:16)
[2018-04-14] MEDS: HYDROcodone/Acetaminophen 10/325 mg Tablet PO PRN ×2 (12:11→19:21)
--- NOTE | 2018-04-14 14:57 | PDOC.GSPN ---
Surgery Progress Note: Subj - Subjective Patient reports: no new complaints, tolerating liquids well Surgery Progress Note: Obj - Vital signs Vital signs: Vital Signs - Most Recent Temp Pulse Resp BP Pulse Ox 97.7 F 83 16 165/105 H 99 04/14/18 11:40 04/14/18 11:40 04/14/18 11:40 04/14/18 11:40 04/14/18 11:40 - Physical Exam General: no distress Cardiovascular: regular rate and rhythm Respiratory: clear to auscultation Abdomen: soft, non tender, nondistended Wound: dressing clean,dry,intact Surgery Progress Note: Results - Labs Result Diagrams: 04/14/18 03:32 04/14/18 03:33 Lab results: Laboratory Results - last 24 hr 04/14/18 04/14/18 03:32 03:33 WBC 10.6 RBC 3.69 L Hgb 10.1 L Hct 31.0 L MCV 83.9 MCH 27.4 MCHC 32.6 RDW 13.8 Plt Count 337 MPV 7.2 L Neutrophils % 80.7 H Lymphocytes % 9.4 L Monocytes % 9.5 Eosinophils % 0.4 Basophils % 0.1 Neutrophils # 8.6 H Lymphocytes # 1.0 L Monocytes # 1.0 H Eosinophils # 0.0 Basophils # 0.0 Sodium 135 L Potassium 4.8 Chloride 109 H Carbon Dioxide 23 Anion Gap 8 L BUN 13 Creatinine 0.80 Estimated GFR (MDRD) Greater than 90 Glucose 106 Calcium 9.0 Surgery Progress Note: A/P - Problem (1) Cancer of sigmoid colon Current Visit: No Code(s): C18.7 - MALIGNANT NEOPLASM OF SIGMOID COLON Status: Acute - Plan Plan: Advance to full liquids. SILVIO ross in am tomorrow. LIkely home Tuesday
[2018-04-14] MEDS ORDERED: Ondansetron ODT 4 MG TAB PO PRN (18:15)
[2018-04-14] MEDS: Nystatin 500,000 UNITS/5 ML UDCUP SSP SCH (22:07)
[2018-04-14] MEDS: Enoxaparin Sodium 40 MG/0.4 ML SYRINGE SC SCH (22:07)
[2018-04-15] MEDS: HYDROcodone/Acetaminophen 10/325 mg Tablet PO PRN ×4 (03:18→18:18)
[2018-04-15] MEDS: Amlodipine 10 MG TAB PO SCH (09:02)
[2018-04-15] MEDS: Famotidine 20 MG TAB PO SCH ×2 (09:02→20:17)
[2018-04-15] MEDS: Nystatin 500,000 UNITS/5 ML UDCUP SSP SCH ×2 (09:02→20:17)
[2018-04-15] MEDS: Famotidine/PF 20 mg/2ml Vial SLOW IVP SCH ×2 (09:03→20:13)
[2018-04-15] MEDS ORDERED: HYDROcodone/Acetaminophen 10/325 mg Tablet PO SCH (09:30)
[2018-04-15] MEDS ORDERED: Tamsulosin HCl 0.4 MG CAP PO SCH (12:00)
[2018-04-15] MEDS: Enoxaparin Sodium 40 MG/0.4 ML SYRINGE SC SCH (20:17)
[2018-04-16] MEDS: HYDROcodone/Acetaminophen 10/325 mg Tablet PO PRN ×3 (00:09→11:52)
[2018-04-16] MEDS ORDERED: Tamsulosin HCl 0.4 MG CAP PO SCH ×2 (09:00→11:30)
[2018-04-16] MEDS: Amlodipine 10 MG TAB PO SCH (09:03)
[2018-04-16] MEDS: Nystatin 500,000 UNITS/5 ML UDCUP SSP SCH (09:04)
[2018-04-16] MEDS: Famotidine 20 MG TAB PO SCH (09:04)
[2018-04-16] MEDS: Famotidine/PF 20 mg/2ml Vial SLOW IVP SCH (09:04)
--- NOTE | 2018-04-16 14:20 | DIS ---
DISCHARGE DIAGNOSES: Metastatic colon cancer, postoperative urinary retention due to benign prostati c hypertrophy. PROCEDURES DURING ADMISSION: Ileostomy reversal. HOSPITAL COURSE: The patient was admitted, taken to the operating room where he underwent reversal o f his ileostomy. Postoperatively, he did well. His bowel function returned quickly; however, he had difficulty voiding. He had multiple I and O caths. He was started on Flomax. The catheter was lef t in. He is discharged home on Flomax, hydrocodone, and Zofran. He will follow up with Dr. Lee in 2 weeks. He is going to see a urologist in the next few days.
[2018-04-16 18:06] VITALS: BP 128/86; TEMP 97.7
[2018-04-17] MEDS ORDERED: Tamsulosin HCl 0.4 MG CAP PO SCH (09:00)
== END 2018-04-16 17:00 | disposition home or self-care (01) | DRG 331 ==
LOC: SURG A 04-13 05:52 → SJJU 04-13 10:17
PROVIDERS: ADMIT Surgery; ATTEND Surgery
PROC: 0DBB0ZZ Excision of Ileum, Open Approach (ICD-10-PCS; principal; 2018-04-13)
DX: Z43.2 Encounter for attention to ileostomy (principal)
CPT/HCPCS: 36415; 80048; 85025; 88305; J0131; J0360; J0694; J1100; J1170; J1650; J1885; J2001; J2405; J2704; J2765; J3010; J7050; Q0162